=== PATIENT | female | born 1955 | race Caucasian/White ===

== ENCOUNTER 2016-07-20 08:25 | Day surgery (SDC) | payer OTHER, BC ==
--- NOTE | 2016-07-20 09:26 | Operative Note ---
Colonoscopy ([facility]) Procedure date: 07/20/16 Date of : 55 Procedure:Colonoscopy Colonoscopy Indications: Mrs. Foster is a 61-year-old female who is here for initial screening colonoscopy. The patient reports no abdominal pain, weight loss, change in her bowel habits or rectal bleeding. She reports no family history of colon cancer. The patient did have an upper endoscopy in September 2006 at which time she did have dysphagia and reflux. She did have grade D LA classification reflux esophagitis and peptic stricture. Performing Provider: Ed Snowden MD Referrring Provider: Fer Kong M.D./Bridget BURDICK Sedation: Fentanyl 200 mg IV/Versed 9 mg IV Procedure: Prior to the procedure, a history and physical exam was performed, and patient medications and allergies were reviewed. The risks and benefits of the procedure and the sedation options and risks were discussed with the patient. All questions were answered and informed consent was obtained. Patient identification and proposed procedure were verified by the physician and the nurse. The patient was placed in a left lateral decubitus position. Throughout the procedure, the patient's blood pressure, pulse, and oxygen saturations were monitored continuously. Findings: On digital rectal examination there was normal rectal tone. There were no external hemorrhoids. The colonoscope was introduced through the anal canal to the rectum and advanced to the cecum. The ileocecal valve and appendiceal orifice were identified. The scope was advanced a short distance into the ileum which appeared grossly normal. The scope was then withdrawn into the colon. The cecum, ascending, transverse, descending, sigmoid and rectum were grossly normal. There was evidence of mucosal fibrosis in the descending/sigmoid colon suggestive of prior self-limited colitis in the watershed region (prior ischemic colitis). Upon retroflexion within the rectum there were grade 1 internal hemorrhoids. Impressions: 1. Normal colonoscopy with intubation of the terminal ileum 2. Small grade 1 internal hemorrhoids 3. Prior self-limited colitis Recommendations: The patient will not require screening/surveillance colonoscopy again for 10 years by ACS guidelines. I would encourage fiber supplementation on a long-term daily maintenance basis. Complications: None EBL (ml): 0 at 0925
[2016-07-20 13:26] VITALS: BP 118/62
== END 2016-07-20 10:21 | disposition home or self-care (01) ==
LOC: SDC 08:25
PROVIDERS: Internal Medicine Gastroenterology
PROC: 0DJD8ZZ Inspection of Lower Intestinal Tract, Via Natural or Artificial Opening Endoscopic (ICD-10-PCS; principal; 2016-07-20 09:00)
DX: Z12.11 Encounter for screening for malignant neoplasm of colon (principal); K64.0 First degree hemorrhoids

== ENCOUNTER → 2017-03-01 | Outpatient (CLI) | payer OTHER, BC | LOC: LAB 07:03 | DX: E03.9 Hypothyroidism, unspecified (principal) ==